=== PATIENT | male | born 1950 | race Caucasian/White ===

== ENCOUNTER 2018-10-17 14:35 | Emergency (ER) | payer OTHER ==
[~2018-10-17] VITALS: Ht 172.7 cm; Wt 74.8 kg
[2018-10-17 14:35] VITALS: BP_SYST 160
[~2018-10-17 14:35] MED LIST: ALPR0.25 PO; HYDR-1189 PO; MEGE400O23 PO; PRO40 PO
--- NOTE | 2018-10-17 14:35 | NUR ---
BROUGHT BACK TO BED #5 AND TRIAGED. REPORT GIVEN TO PUSHPA
--- NOTE | 2018-10-17 15:10 | NUR ---
Patient to ER via triage for evaluation of anxiety for several weeks, patient is awake, alert and oriented in no acute distress, vital signs stable, respirations even and unlabored, skin warm and dry to touch. Family remains at bedside, awaiting evaluation by ER MD, will continue to observe and assess.
[2018-10-17] MEDS ORDERED: LORazepam 2 MG/ML VIAL (FOR ER USE) IVP ONE (16:00)
[2018-10-17] MEDS ORDERED: NACL 0.9% 1,000 ML IV ONE (16:00)
--- NOTE | 2018-10-17 16:10 | NUR ---
Assessment remains unchanged.
[2018-10-17 16:32] LABS: CALCIUM 9.2 mg/dL (8.4-11.0); CREATININE 0.91 mg/dL (0.55-1.30); MEAN CORPUSCULAR HEMOGLOBIN 32 pg (27-31); MEAN CORPUSCULAR HGB CONC 33 % (32-36); POTASSIUM 3.7 mmol/L (3.5-5.1)
[2018-10-17 16:33] LABS: HEMOGLOBIN 15.1 g/dL (14.0-18.0); RED BLOOD CELL COUNT(AUTO) 4.64 MIL/uL (4.2-6.2); WHITE BLOOD COUNT (AUTO) 7.6 K/uL (4.8-10.8)
[2018-10-17 16:34] LABS: MEAN CORPUSCULAR VOLUME 97 fL (79.0-98.0); PLATELET COUNT (AUTO) 275 K/uL (130-430); RED CELL DISTRIBUTION WIDTH 12.4 % (9.0-15.0)
[2018-10-17 16:37] LABS: BAND % (MANUAL) 1 % (0-6); BASOPHILS % (MANUAL) 0 % (0-2); EOSINOPHILS % (MANUAL) 0 % (0-7); LYMPHOCYTES % (MANUAL) 11 % (20-46); MONOCYTES % (MANUAL) 2 % (0-11)
[2018-10-17 16:38] LABS: ALBUMIN 3.8 g/dL (3.4-4.8); PROTHROMBIN TIME 10.1 SECS (9.5-12.5); TOTAL BILIRUBIN 1.4 mg/dL (0.0-1.0)
--- NOTE | 2018-10-17 16:40 | NUR ---
ER at bedside examining patient.
--- NOTE | 2018-10-17 16:55 | NUR ---
IV fluids infusing without difficulty, no redness or swelling noted at iste. Dr Narayan at bedside speaking with patient/family regarding results and plan of care, questions ansered by Dr Narayan.
[2018-10-17 17:08] VITALS: BP_SYST 148
--- NOTE | 2018-10-17 17:08 | NUR ---
Patient given written and verbal discharge instructions by Dr. Narayan and verbalizes understanding. ER MD discussed with patient the results and treatment provided. Patient in stable condition. ID arm band removed. IV catheter removed intact and dressing applied, no active bleeding. No Rx given. Patient educated on pain management and to follow up with PMD. Pain Scale 0/10. Opportunity for questions provided and answered. Medication side effect fact sheet provided.
== END 2018-10-17 17:08 | disposition home or self-care (01) ==
LOC: SED 14:35
DX: F41.9 Anxiety disorder, unspecified (principal); R53.1 Weakness; E78.00 Pure hypercholesterolemia, unspecified; R03.0 Elevated blood-pressure reading, without diagnosis of hypertension; Z79.899 Other long term (current) drug therapy
CPT/HCPCS: 36415; 71045; 80053; 83880; 84484; 85007; 85027; 85379; 85610; 85730; 93005; 96374; 99284; J2060; J7030; 99283

== ENCOUNTER 2018-10-20 14:52 | Emergency (ER) | payer OTHER ==
[~2018-10-20] VITALS: Ht 172.7 cm; Wt 72.6 kg
[2018-10-20 14:58] VITALS: BP_SYST 161
[2018-10-20 16:05] LABS: BASOPHILS # (AUTO) 0.1 K/uL (0.0-0.2); BASOPHILS % (AUTO) 0.7 % (0.0-2.0); EOSINOPHILS # (AUTO) 0.1 K/uL (0.0-0.4); EOSINOPHILS % (AUTO) 0.7 % (0.0-4.0); HEMATOCRIT 43.5 % (36-54); HEMOGLOBIN 14.6 g/dL (14.0-18.0); LYMPHOCYTES % (AUTO) 13.7 % (20.5-51.5); MEAN CORPUSCULAR HEMOGLOBIN 32 pg (27-31); MEAN CORPUSCULAR HGB CONC 34 % (32-36); MEAN CORPUSCULAR VOLUME 95 fL (79.0-98.0); MONOCYTES # (AUTO) 0.5 K/uL (0.0-1.0); MONOCYTES % (AUTO) 6.3 % (1.7-9.3); NEUTROPHILS # (AUTO) 5.9 K/uL (1.8-7.7); NEUTROPHILS % (AUTO) 78.6 % (40.0-70.0); PLATELET COUNT (AUTO) 289 K/uL (130-430); RED BLOOD CELL COUNT(AUTO) 4.57 MIL/uL (4.2-6.2); RED CELL DISTRIBUTION WIDTH 12.4 % (9.0-15.0); WHITE BLOOD COUNT (AUTO) 7.6 K/uL (4.8-10.8)
[2018-10-20 16:10] LABS: CALCIUM 9.6 mg/dL (8.4-11.0); CREATININE 0.77 mg/dL (0.55-1.30); POTASSIUM 3.4 mmol/L (3.5-5.1)
[2018-10-20 16:14] LABS: ALBUMIN 3.8 g/dL (3.4-4.8); TOTAL BILIRUBIN 1.8 mg/dL (0.0-1.0)
[2018-10-20] MEDS ORDERED: LORazepam 1 MG TABLET PO ONE (16:30)
[2018-10-20 18:20] VITALS: BP_SYST 139
== END 2018-10-20 18:20 | disposition home or self-care (01) ==
LOC: SED 14:52
DX: F41.9 Anxiety disorder, unspecified (principal); R11.0 Nausea; E78.00 Pure hypercholesterolemia, unspecified; Z87.891 Personal history of nicotine dependence; Z79.899 Other long term (current) drug therapy
CPT/HCPCS: 36415; 36600; 71045; 80053; 82803-TC; 83880; 84484; 85025; 85379; 85610-TC; 85730-TC; 93005; 99284

== ENCOUNTER 2019-05-01 16:48 | Emergency (ER) | payer OTHER ==
[~2019-05-01] VITALS: Ht 172.7 cm; Wt 86.2 kg
[~2019-05-01 16:48] MED LIST changes: -MEGE400O23 PO; +MEGE400O4 PO
[2019-05-01 17:04] VITALS: BP_SYST 159
[2019-05-01] MEDS ORDERED: HYDROcodone/ACETAMIN 5-325 MG TAB (NORCO/ VICODIN) PO ONE (17:30)
[2019-05-01 17:51] LABS: BASOPHILS % (AUTO) 0.4 % (0.0-2.0); EOSINOPHILS # (AUTO) 0.2 K/uL (0.0-0.4); EOSINOPHILS % (AUTO) 4.9 % (0.0-4.0); HEMATOCRIT 42.5 % (36-54); HEMOGLOBIN 14.3 g/dL (14.0-18.0); LYMPHOCYTES # (AUTO) 0.9 K/uL (1.0-5.5); LYMPHOCYTES % (AUTO) 22.6 % (20.5-51.5); MEAN CORPUSCULAR HEMOGLOBIN 33 pg (27-31); MEAN CORPUSCULAR HGB CONC 34 % (32-36); MEAN CORPUSCULAR VOLUME 97 fL (79.0-98.0); MONOCYTES # (AUTO) 0.4 K/uL (0.0-1.0); MONOCYTES % (AUTO) 9.2 % (1.7-9.3); NEUTROPHILS # (AUTO) 2.6 K/uL (1.8-7.7); NEUTROPHILS % (AUTO) 62.9 % (40.0-70.0); PLATELET COUNT (AUTO) 307 K/uL (130-430); RED BLOOD CELL COUNT(AUTO) 4.37 MIL/uL (4.2-6.2); RED CELL DISTRIBUTION WIDTH 13.8 % (9.0-15.0); WHITE BLOOD COUNT (AUTO) 4.2 K/uL (4.8-10.8)
[2019-05-01 17:58] LABS: CALCIUM 9.1 mg/dL (8.4-11.0); CREATININE 0.91 mg/dL (0.55-1.30); POTASSIUM 4.9 mmol/L (3.5-5.1)
[2019-05-01 18:04] LABS: ALBUMIN 3.2 g/dL (3.4-4.8); TOTAL BILIRUBIN 0.4 mg/dL (0.0-1.0)
[2019-05-01 20:48] VITALS: BP_SYST 138
== END 2019-05-01 20:48 | disposition home or self-care (01) ==
LOC: SED 16:48
DX: I89.0 Lymphedema, not elsewhere classified (principal); E78.00 Pure hypercholesterolemia, unspecified; F41.9 Anxiety disorder, unspecified; Z79.899 Other long term (current) drug therapy
CPT/HCPCS: 36415; 80053; 85025; 93970; 99284

== ENCOUNTER 2020-05-26 12:08 | Emergency (ER) | payer OTHER ==
[~2020-05-26] VITALS: Ht 172.7 cm; Wt 83.9 kg
[2020-05-26 12:10] VITALS: BP_SYST 111
--- NOTE | 2020-05-26 12:15 | NUR ---
TRIAGED AND BROUGHT BACK TO BED IN [place], REPORT GIVEN TO BLACK
--- NOTE | 2020-05-26 12:31 | NUR ---
PER , PT HAS HAD MULTIPLE FALLS IN THE PAST 2 DAYS AND TODAY SEEMS MORE CONFUSED THAN NORMAL. PT ATTEMPTING TO PUT ON MASK, BUT PUT IT ON HIS ARM. WENT TO DR MORSE OFFICE AND WAS SENT TO ER. PT IS ALERT AND ORIENTED X2, FALLS TO SLEEP EASILY.
--- NOTE | 2020-05-26 12:35 | NUR ---
ER Dr. Narayan at bedside examining patient.
--- NOTE | 2020-05-26 12:40 | NUR ---
TAKEN TO RADIOLOGY VIA [facility]ATO
--- NOTE | 2020-05-26 12:55 | NUR ---
RETURNED FROM RADIOLOGY, PLACED BACK TO BED IN [place]
--- NOTE | 2020-05-26 13:20 | NUR ---
Lab at bedside for blood draw.
[2020-05-26 13:51] LABS: ANION GAP 5 (5-15); CALCIUM 9.3 mg/dL (8.4-11.0); CHLORIDE 97 mmol/L (98-107); CREATININE 1.14 mg/dL (0.55-1.30); GLUCOSE 116 mg/dL (70-99); POTASSIUM 4.3 mmol/L (3.5-5.1); SODIUM SERUM 130 mmol/L (136-145); UREA NITROGEN, BLOOD 17 mg/dL (8-21)
[2020-05-26 13:52] LABS: BASOPHILS # (AUTO) 0.1 K/uL (0.0-0.2); BASOPHILS % (AUTO) 1.5 % (0.0-2.0); EOSINOPHILS # (AUTO) 0.3 K/uL (0.0-0.4); HEMATOCRIT 45.9 % (36-54); HEMOGLOBIN 15.7 g/dL (14.0-18.0); LYMPHOCYTES # (AUTO) 0.7 K/uL (1.0-5.5); LYMPHOCYTES % (AUTO) 8.6 % (20.5-51.5); MEAN CORPUSCULAR HEMOGLOBIN 32 pg (27-31); MEAN CORPUSCULAR HGB CONC 34 % (32-36); MEAN CORPUSCULAR VOLUME 95 fL (79.0-98.0); MONOCYTES # (AUTO) 0.7 K/uL (0.0-1.0); MONOCYTES % (AUTO) 7.8 % (1.7-9.3); NEUTROPHILS # (AUTO) 6.8 K/uL (1.8-7.7); NEUTROPHILS % (AUTO) 79.1 % (40.0-70.0); PLATELET COUNT (AUTO) 256 K/uL (130-430); RED BLOOD CELL COUNT(AUTO) 4.83 MIL/uL (4.2-6.2); RED CELL DISTRIBUTION WIDTH 13.7 % (9.0-15.0); WHITE BLOOD COUNT (AUTO) 8.7 K/uL (4.8-10.8)
[2020-05-26 13:55] LABS: ALANINE AMINOTRANSFERASE 26 U/L (12-78); ALBUMIN 3.7 g/dL (3.4-4.8); ALCOHOL, BLOOD 3 mg/dL (<10); ASPARTATE AMINOTRANSFERASE 43 U/L (10-37)
--- NOTE | 2020-05-26 15:35 | NUR ---
EKG performed at BS by EMT. Physician given copy of EKG for review.
--- NOTE | 2020-05-26 15:48 | NUR ---
Urine sample collected and sent to lab as per MD orders
[2020-05-26] MEDS ORDERED: NACL 0.9% 1,000 ML IV ONE (16:00)
[2020-05-26 16:09] LABS: BILIRUBIN,URINE NEGATIVE (NEGATIVE); CLARITY/URINE CLEAR (CLEAR); COLOR,URINE YELLOW (YELLOW); GLUCOSE,URINE NEGATIVE (NEGATIVE); KETONES,URINE TRACE (NEGATIVE); LEUKOCYTE ESTERASE ,URINE NEGATIVE (NEGATIVE); NITRITE, URINE NEGATIVE (NEGATIVE); PH,URINE 6.5 (5.0-8.0); PROTEIN URINE NEGATIVE (NEGATIVE); UROBILINOGEN,URINE 0.2 (0.2-1.0)
[2020-05-26 16:18] LABS: BLOOD, URINE TRACE (NEGATIVE)
[2020-05-26 16:28] LABS: BARBITURATE, URINE NEGATIVE (NEG <=200); BENZODIAZEPINE, URINE POSITIVE (NEG <=150); CANNABINOID, URINE POSITIVE (NEG <=50); COCAINE, URINE NEGATIVE (NEG <=150); METHAMPHETAMINES SCREEN,URINE NEGATIVE (NEG <=500); OPIATE, URINE POSITIVE (NEG <=100); PHENCYCLIDINE SCREEN,URINE NEGATIVE (NEG <=25); UR TRICYCLIC ANTIDEPRESSANTS NEGATIVE (NEG <=300); URINE AMPHETAMINE NEGATIVE (NEG <=500); URINE METHADONE NEGATIVE (NEG <=200); URINE OXYCODONE SCREEN NEGATIVE (NEG <=100); URINE PROPOXYPHENE SCREEN NEGATIVE (NEG <=300)
[2020-05-26 16:39] LABS: BACTERIA,URINE RARE /HPF (None Seen); MUCUS,URINE None Seen /LPF (None Seen); RBC,URINE 0-3 /HPF (0-3); WBC,URINE 0-3 /HPF (0-3)
--- NOTE | 2020-05-26 18:15 | NUR ---
Patient given written and verbal discharge instructions and verbalizes understanding. ER MD discussed with patient the results and treatment provided. Patient in stable condition. ID arm band removed. IV catheter removed intact and dressing applied, no active bleeding. No prescriptions given. Patient educated on pain management and to follow up with PMD. Pain Scale 0. Opportunity for questions provided and answered. Medication side effect fact sheet provided.
[2020-05-26 18:18] VITALS: BP_SYST 111
== END 2020-05-26 18:18 | disposition home or self-care (01) ==
LOC: SED 12:08
DX: R41.82 Altered mental status, unspecified (principal); F19.10 Other psychoactive substance abuse, uncomplicated; E78.00 Pure hypercholesterolemia, unspecified; F41.9 Anxiety disorder, unspecified; Z79.899 Other long term (current) drug therapy
CPT/HCPCS: 36415; 70450; 71045; 80053; 80307; 81000; 82140; 83605; 85025; 87040; 93005; 96360; 99291; G0482; J7030

== ENCOUNTER 2021-12-21 12:30 | Emergency (ER) | payer OTHER, SELFPAY ==
[~2021-12-21] VITALS: Ht 172.7 cm; Wt 76.7 kg
[~2021-12-21 12:30] MED LIST changes: -HYDR-1189 PO; +HYDR-3919 PO
[2021-12-21 12:35] VITALS: BP_SYST 97
--- NOTE | 2021-12-21 12:39 | NUR ---
Patient to ER bed 04 to gown for evaluation. Side rails up.
--- NOTE | 2021-12-21 12:42 | NUR ---
Pt brought by self, A&Ox4, pt presents to ER with L shoulder pain after falling last , pt taking [place] with no relieve, skin pink and warm, cap refill <3 VSS
--- NOTE | 2021-12-21 12:47 | NUR ---
Dr Reyes evaluating patient at bedside
[2021-12-21] MEDS ORDERED: NAPR-688 PO (14:10)
--- NOTE | 2021-12-21 14:30 | NUR ---
Shoulder immobilizer placed. VSS. A&Ox4
[2021-12-21 14:48] VITALS: BP_SYST 132
--- NOTE | 2021-12-21 14:49 | NUR ---
Patient given written and verbal discharge instructions and verbalizes understanding. ER MD discussed with patient the results and treatment provided. Patient in stable condition. ID arm band removed. Patient educated on pain management and to follow up with PMD. Pain Scale . Opportunity for questions provided and answered. Medication side effect fact sheet provided.
== END 2021-12-21 14:48 | disposition home or self-care (01) ==
LOC: SED 12:30
DX: S40.012A Contusion of left shoulder, initial encounter (principal); E78.00 Pure hypercholesterolemia, unspecified; Z79.899 Other long term (current) drug therapy; W18.39XA Other fall on same level, initial encounter; Y93.89 Activity, other specified; Y92.89 Other specified places as the place of occurrence of the external cause; Y99.8 Other external cause status
CPT/HCPCS: 73030; 99284